=== PATIENT | female | born 1935 | race Caucasian/White ===

== ENCOUNTER 2023-05-02 17:23 | Emergency (ER) | payer MEDICARE, BC ==
[~2023-05-02] VITALS: Ht 162.6 cm; Wt 100.0 kg
[2023-05-02 23:05] VITALS: TEMP 97.2
[2023-05-02 23:10] VITALS: PULSE 75; RESP 13; O2SAT 90
[2023-05-02] MEDS ORDERED: COCAINE HCL 4% TOP SOL 4ML TOP ONE (23:45)
[2023-05-02] MEDS ORDERED: OXYMETAZOLINE HCL 0.05 % NASAL SPRAY 15ML EACHNOSTRI ONE (23:45)
[2023-05-03 00:26] LABS: Basophils # (auto) 0.1 10 ^3/uL (0-0.2); Basophils % (auto) 0.7 % (0.0-2.0); Eosinophils # (auto) 0 10 ^3/uL (0-0.8); Eosinophils % (auto) 0.1 % (0.0-7.0); Hematocrit 34.5 % (36.0-46.0); Hemoglobin 11.1 g/dL (12.2-16.2); Lymphocytes # (auto) 0.9 10 ^3/uL (0.4-5.4); Mean Corpuscular Hemoglobin 32.6 pg (28.0-32.0); Mean Corpuscular Hgb Conc. 32.3 g/dL (32.0-36.0); Mean Corpuscular Volume 100.9 fL (80.0-100.0); Monocytes # (auto) 0.5 10 ^3/uL (0-1.3); Monocytes % (auto) 3.9 % (0.0-12.0); Neutrophils # (auto) 10.3 10 ^3/uL (1.6-8.6); Neutrophils % (auto) 87.3 % (37.0-80.0); Nucleated Red Blood Cells % 0.1 %; Red Blood Cells 3.42 10^6/uL (4.0-5.20); Red Cell Distribution Width 17.3 % (11.8-14.3); White Blood Cell 11.8 10^3/uL (4.4-10.8)
[2023-05-03] MEDS ORDERED: LOPERAMIDE HCL 2 MG CAP/TAB PO ONE (00:30)
[2023-05-03] MEDS ORDERED: ONDANSETRON HCL 4 MG/2 ML VIAL IV ONE (00:30)
[2023-05-03 00:35] LABS: Albumin 3.7 g/dL (3.4-5.0); Calcium 8.8 mg/dL (8.5-10.1); INR 2.2 (0.9-1.15); Magnesium 2.1 mg/dL (1.6-2.6); Potassium 3.7 mmol/L (3.5-5.1); Prothrombin Time 21.9 sec (9.3-11.8)
[2023-05-03 00:37] LABS: BUN/Creatinine Ratio 18.6 (10.0-20.0)
[2023-05-03 00:39] LABS: Bilirubin, Total 1.8 mg/dL (0.2-1.0); Total Protein 6.8 g/dL (6.4-8.2)
[2023-05-03 07:25] VITALS: BP 105/46; PULSE 73; RESP 13; O2SAT 98
== END 2023-05-03 04:10 | disposition home or self-care (01) ==
LOC: EDBD 17:23 → ER 17:23
DX: R04.0 Epistaxis (principal); D64.9 Anemia, unspecified; I11.0 Hypertensive heart disease with heart failure; I50.9 Heart failure, unspecified; I48.91 Unspecified atrial fibrillation; Z98.890 Other specified postprocedural states; Z88.0 Allergy status to penicillin
CPT/HCPCS: 36415; 80053; 83735; 84484; 85025; 85610; 85730; 96374; 99285; J2405